=== PATIENT | male | born 1930 | race Caucasian/White ===

== ENCOUNTER 2017-10-15 18:06 | Inpatient (IN) | payer OTHER ==
[~2017-10-15] VITALS: Ht 162.5 cm; Wt 70.9 kg
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
[2017-10-16] MEDS ORDERED: HYDROXYZINE PAM50 MG PO (02:21)
[2017-10-16] MEDS ORDERED: DONEPEZIL HCL10 MG PO (02:22)
[2017-10-16] MEDS ORDERED: ALLOPURINOL100 MG PO (02:25)
[2017-10-16] MEDS ORDERED: AMLODIPINE BESYL5 MG PO (02:25)
[2017-10-16] MEDS ORDERED: DIVALPROEX SOD250 MG PO (02:29)
[2017-10-16] MEDS ORDERED: DIVALPROEX SOD125 MG PO (02:30)
[2017-10-16] MEDS ORDERED: Lac-Hydrin 12%340 GM T (02:31)
[2017-10-16] MEDS ORDERED: LISINOPRIL40 MG PO (02:32)
[2017-10-16] MEDS ORDERED: ACETAMINOPHEN325 M2 PO (02:39)
[2017-10-16] MEDS ORDERED: TYLENOL325 M3 PO (02:41)
[2017-10-16] MEDS ORDERED: DEPAKOTE500 MG PO (02:42)
[2017-10-16] MEDS ORDERED: MELATONIN5 M1 SL (02:42)
[2017-10-16] MEDS ORDERED: OMEPRAZOLE20 M2 PO (02:44)
[2017-10-16 14:03] VITALS: BP 133/84
[2017-10-16 14:54] VITALS: BP 133/84
[2017-10-17 06:23] LABS: BASO % 0.5 % (0.0-1.0); EOS # 0.2 10*3/uL (0.0-0.4); EOS % 2.4 % (1.0-4.0); HEMATOCRIT 41.9 % (42.0-52.0); HEMOGLOBIN 13.7 g/dl (14.0-18.0); LYMPH # 2.8 10*3/uL (1.3-4.4); LYMPH % 33.5 % (27.0-41.0); MEAN CELL VOLUME 93.3 fl (80.0-94.0); MEAN CORPUSCULAR HGB 30.5 pg (27.0-31.0); MEAN CORPUSCULAR HGB CONC 32.7 g/dl (33.0-37.0); MEAN PLATELET VOLUME 9.3 fl (9.6-12.3); MONO # 0.8 10*3/uL (0.1-1.0); MONO % 9.4 % (3.0-9.0); NEUT # 4.4 10*3/uL (2.3-7.9); NEUT % 53.5 % (47.0-73.0); PLATELET COUNT AUTOMATED 175 10*3/uL (130-400); RED BLOOD COUNT 4.49 10*6/uL (4.50-5.90); RED CELL DISTRI WIDTH 14.1 % (0-14.5); WHITE BLOOD COUNT 8.2 10*3/uL (4.8-10.8)
[2017-10-17 07:03] LABS: ALBUMIN 3.7 gm/dl (3.1-4.5); CREATININE 2.09 mg/dL (0.70-1.30); POTASSIUM 4.3 mmol/L (3.5-5.1); TOTAL PROTEIN 7.6 gm/dL (6.4-8.2)
[2017-10-17 07:13] LABS: THYROID STIM HORMONE (HS) 1.17 uIU/ml (0.358-4.75); VALPROIC ACID (DEPAKENE) 83.6 ug/ml (50-100)
[2017-10-17 08:09] VITALS: BP 121/67
[2017-10-17 10:22] LABS: VITAMIN D, 25-HYDROXY 45.9 ng/mL (30-100)
[2017-10-18] MEDS ORDERED: NAMENDA5 M1 PO (07:28)
[2017-10-18] MEDS ORDERED: ARICEPT5 M1 PO (07:29)
[2017-10-18] MEDS ORDERED: Depakote500 MG PO (09:35)
== END 2017-10-17 19:19 | disposition short-term general hospital (02) | DRG 57 ==
LOC: 3N 18:06
PROVIDERS: Psychiatry & Neurology Psychiatry
DX: G30.9 Alzheimer's disease, unspecified (principal); F02.81 Dementia in other diseases classified elsewhere, unspecified severity, with behavioral disturbance; F23 Brief psychotic disorder; F63.81 Intermittent explosive disorder; I25.10 Atherosclerotic heart disease of native coronary artery without angina pectoris; F32.9 Major depressive disorder, single episode, unspecified; K21.9 Gastro-esophageal reflux disease without esophagitis; E78.5 Hyperlipidemia, unspecified; F41.9 Anxiety disorder, unspecified; I10 Essential (primary) hypertension; Z79.899 Other long term (current) drug therapy; Z88.8 Allergy status to other drugs, medicaments and biological substances

== ENCOUNTER 2017-10-17 18:27 | Inpatient (IN) | payer OTHER ==
[2017-10-17] VITALS (18 sets, daily range): BP systolic 51–138; BP diastolic 31–78
[~2017-10-17] VITALS: Ht 160 cm; Wt 70.8 kg
--- NOTE | ~2017-10-17 | PR ---
[place], [place] PROGRESS NOTE NAME: MARK WINTER JR UNIT #: [id number] ROOM: [facility] DOCTOR: TRENT TIDWELL MD BIRTHDATE: [birth year] DOS: 10/20/2017 SUBJECTIVE: The patient was noted comfortable at this time, resting and appeared to be partially sedated. Not been noted in respiratory distress. Since the patient liberated from mechanical ventilation. He has not been noted any hemodynamic instability otherwise. The cultures of the endotracheal aspirate noted as normal indu. Hypertension for this patient was noted to be better and normal. OBJECTIVE: VITAL SIGNS: Normal temperature, respiratory rate 26, heart rate of 86, blood pressure 120/84. Pulse oxygen saturation on 2 L 98% saturation. HEENT: Head was atraumatic. Eyes nonicterus. NECK: Supple. CARDIOVASCULAR: S1, S2 audible. LUNGS: Noted without any wheezing or crackles. ABDOMEN: Soft, nontender. EXTREMITIES: Without any acute edema. LABORATORY DATA: The patient's chest x-ray that was done yesterday shows persistent small atelectasis left lower lobe. VQ scan was noted completely normal. The patient's CBC 10/20/2017 noted normal WBC count, hemoglobin 12.1, platelet count were normal. The endotracheal aspirate culture was normal. PT/PTT normal today. CMP: BUN 30, creatinine 1.43. IMPRESSION: 1. The patient with hypertension, most likely secondary to intravascular volume depletion, seemed to be improving. No other etiology of the current hypertension determined. 2. The patient with change in mental status also noted previously, which has been still persistent with psychiatric issues. PLAN OF MANAGEMENT: No antibiotic will be needed. Continuation of the bronchodilators, oxygen supplementation and other therapy, plan of management for the patient at this time. Oxygen supplementation, maintain pulse oxygen saturation 92% or greater. Additional treatment changes to be made for the patient based on progression of the illness. [place], [place] PROGRESS NOTE NAME: MARK WINTER JR UNIT #: [id number] ROOM: [facility] DOCTOR: TRENT TIDWELL MD BIRTHDATE: [birth year] RTENT MARES MD CM:PNTRANS 1229 1503 TRENT CASSIDY MD 10/20/17 1502 interface
--- NOTE | ~2017-10-17 | EKG ---
[place], [place] ELECTROCARDIOGRAM REPORT NAME: MARK WINTER JR UNIT #: [id number] ROOM: [facility] DOCTOR: VISHNU CASSIDY MD,TRENT BIRTHDATE: [birth year] DOS: 10/17/2017 The electrocardiogram done for this patient on 10/17/2017 at 6:42 p.m. Baseline artifact was noted because of the movement. Normal sinus rhythm were noted for the patient. TRENT MARES MD CM:EKGRPT:ELECTROCARDIOGRAM REPORT 1326 1425 TRENT CASSIDY MD
--- NOTE | ~2017-10-17 | PROC NOTE ---
[place], [place] PROCEDURE NOTE NAME: MARK WINTER JR UNIT #: [id number] ROOM: [facility] DOCTOR: LILIANA VIVEROS,VANDANA BIRTHDATE: [birth year] DOS: 10/17/2017 TIME OF PROCEDURE: 1849. I was called to the room by the Internal Medicine residents for evaluation of a patient with altered mental status and decreased oxygen saturations. The patient was undergoing bag valve mask ventilation with 100% oxygen and was somewhat hypotensive with blood pressures in the 60s. Two IVs were established by nursing and 1 mL of push dose epinephrine was given to the patient IV. Blood pressure did improve to above 90 systolic. He remained with altered mental status, requiring assistance with bag valve mask ventilation, and the patient was intubated endotracheally with rapid sequence intubation - specifically, etomidate 30 mg IV, followed by succinylcholine 100 mg IV. GlideScope was used and a 7.5 cuffed endotracheal tube was inserted to a depth of 24 cm. Placement was confirmed with bilateral breath sounds and end tidal CO2 detector with color change appropriately. The patient was then started on a propofol drip for sedation, and was also ordered morphine and Versed for sedation. Further management of the care was returned back to the primary team. VANDANA FORD MD CM:PROCNOTE:PROCEDURE NOTE [id number] VANDANA FORD MD
--- NOTE | ~2017-10-17 | EKG ---
[place], [place] ELECTROCARDIOGRAM REPORT NAME: MARK WINTER JR UNIT #: [id number] ROOM: [facility] DOCTOR: VISHNU CASSIDY MD,TRENT BIRTHDATE: [birth year] DOS: 10/17/2017 Electrocardiogram was done on 10/17/2017, at 2141 hours. It shows a normal sinus rhythm. Heart rate 83 beats per minute. Old inferior myocardial infarction would be considered. TRENT MARES MD CM:EKGRPT:ELECTROCARDIOGRAM REPORT 1327 1423 TRENT CASSIDY MD
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
--- NOTE | ~2017-10-17 | PR ---
[place], [place] PROGRESS NOTE NAME: MARK WINTER JR UNIT #: [id number] ROOM: [facility] DOCTOR: VISHNU CASSIDY MD,TRENT BIRTHDATE: [birth year] DOS: 10/19/2017 PULMONARY PROGRESS NOTE SUBJECTIVE: The patient self-extubated this morning. He has been noted to be awake and alert without any acute distress at the present time, post extubation. He has been noted with confusional status. The patient has not been noted any symptoms of any distress this morning. Speech remains garbled, unable to understand. He required 2-point restraints because of his agitation. He has not been able to give me any history by himself. OBJECTIVE: VITAL SIGNS: The patient showed a temperature noted as 99.8 degree Fahrenheit to normal temperature, respiratory rate of 26-13, heart rate of 99-107, blood pressure 115/76-131/86. Pulse oxygen saturation of the patient noted to 4 liters nasal cannula 97% saturation. The pulse ox sat 100% noted on mechanical ventilation plus oxygen. HEENT: Examination shows head was atraumatic. Eyes nonicterus. NECK: Supple. CARDIOVASCULAR: S1, S2 audible. LUNGS: The patient was noted without any wheezing or crackles at the present time. ABDOMEN: Soft, nontender. EXTREMITIES: The patient was noted without any acute edema. MUSCULOSKELETAL: Without any acute deformities. SKIN: Visible skin, no lesions or rashes. LABORATORY DATA: The CMP that was done this morning, BUN 37, creatinine 2.06, glucose 103. CO2 of 20. AST was 62. Blood culture, no bacterial growth from the 10/17/2017. Endotracheal as per the patient's cultures normal indu from yesterday with pending results. The PTT was noted greater than 250. Urine culture showed no bacterial growths. IMPRESSION: 1. The patient with hypoxia currently noted with a significant increase in PTT, which has been currently adjusted. 2. The patient with acute respiratory failure, unresponsive, status post liberation of mechanical ventilation. 3. Resolution of hypotension. 4. History of dementia and psychiatric problems. PLAN OF MANAGEMENT: No changes in the plan of management of the patient at this time as in progress just the anticoagulation based on the protocol. Supportive therapy, plan of management, other care, plan of management therapy. Usual treatment and therapies. [place], [place] PROGRESS NOTE NAME: MARK WINTER JR UNIT #: [id number] ROOM: [facility] DOCTOR: TRENT TIDWELL MD BIRTHDATE: [birth year] TRENT MARES MD CM:FLAQUITA [id number] [id number] TRENT CASSIDY MD 10/20/17 0933 interface
--- NOTE | ~2017-10-17 | PR ---
[place], [place] PROGRESS NOTE NAME: MARK WINTER JR UNIT #: [id number] ROOM: [facility] DOCTOR: VISHNU CASSIDY MD,TRENT BIRTHDATE: [birth year] DOS: 10/23/2017 PULMONARY PROGRESS NOTE SUBJECTIVE: The patient noted comfortable at this time, sitting on the chair, eating his food. He has not been noted any symptoms of agitation at this time, shortness of breath, or coughing. The patient was noted cooperative with examination. OBJECTIVE: VITAL SIGNS: For the patient which were recorded showed the temperature noted normal, respiratory rate 18, heart rate 90, blood pressure 124/80. Pulse oxygen saturation recorded on room air as 96% saturation. HEENT: Examination shows head was atraumatic. Eyes nonicterus. CARDIOVASCULAR: S1, S2 audible. LUNGS: Clear to auscultation bilaterally. ABDOMEN: Soft, nontender, mild obesity. Bowel sounds present. EXTREMITIES: Without any acute edema. IMPRESSION: Stable respiratory status. Resolution of acute hypotension as well as respiratory failure, progressive and acute psychiatric illness with agitation and confusional status noted. PLAN OF MANAGEMENT: No changes in the plan of management at this time. The patient does not require any additional intervention at this time, doing very well. His psychiatric medications have been changed. Progressively and behavior toro, the patient has been noted much better today than before. TRENT MARES MD CM:PNTRANS 1115 1328 TRENT CASSIDY MD 10/23/17 1326 interface
--- NOTE | ~2017-10-17 | CON ---
[place], [place] REPORT OF CONSULTATION NAME: MARK WINTER JR UNIT #: [id number] ROOM: [facility] DOCTOR: JOSIE GREWAL MD BIRTHDATE: [birth year] DOS: 10/18/2017 CHIEF COMPLAINT: The patient was nonverbal. HISTORY OF PRESENT ILLNESS: This is an 87-year-old white male known to me from previous admission to the [facility] as well as his stay at [facility] in [place]. The patient was admitted to the [facility] recently due to altered mental status with severe verbal and physical aggression. On the day that he was discharged from the [facility] to ICU, the patient had been refusing p.o. intake. In an attempt to get him to eat better, nursing changed his diet to pureed. He did eat a full meal and then had an episode of nausea and vomiting and subsequently a significant change in mental status. Vitals were checked and his blood pressure was found to be 67/48 with a heart rate of 80 and a temperature of 97.1, respirations of 16 and a pulse ox of 92. The patient did have a very weak pulse and his blood pressure was confirmed to be very low. At this point, he was minimally responsive and it was felt that an admission to the ICU was warranted. Since he has been in ICU, nurses report that he does seem to be fighting the respirator, but otherwise is uneventful. There is some question regarding what medicines he should be on psychiatrically. PAST MEDICAL HISTORY: Remarkable for dementia, coronary artery disease, hypertension, GERD, and hyperlipidemia. ALLERGIES: He does have an allergy to EXELON, supposedly. MENTAL STATUS: His mental status is limited due to his unresponsiveness. PLAN: I will go ahead and simplify his medication regimen. At this point, I will put on hold his Exelon, maintain his Aricept at 5 a day and Namenda at 5 mg twice a day. I will sign off the case at this point as his medical needs far outweigh his psychiatric. JOSIE GREWAL MD CM:CONSTR:REPORT OF CONSULTATION 0940 10/29/17 1423 interface
--- NOTE | ~2017-10-17 | PR ---
[place], [place] PROGRESS NOTE NAME: MARK WINTER JR UNIT #: [id number] ROOM: [facility] DOCTOR: VISHNU CASSIDY MD,TRENT BIRTHDATE: [birth year] DOS: 10/21/2017 SUBJECTIVE: The patient was noted without any acute new complaints at the present time. The patient was noted restless, with the patient agitated at time as previously with the psych issues. He had not been noted any respiratory distress. The blood pressure the patient noted well maintained without evidence of hypotension. Oxygenation was also noted better. OBJECTIVE: VITAL SIGNS: Normal temperature this morning, respiratory rate of 28 to 33. Heart rate of 98. The temperature normal. The pulse oxygen saturation of the patient recorded as 98% saturation on 2 L nasal cannula. HEENT: Examination shows head was atraumatic. Eyes nonicterus. NECK: Supple. CARDIOVASCULAR: S1, S2 audible. LUNGS: The patient was noted without any wheezing or crackles at the present time. ABDOMEN: Soft, nontender. EXTREMITIES: Without any acute edema. IMPRESSION: Persistent change in mental status, agitated behavior. The patient has psychosis. The patient noted resolution of the hypotension the acute illness patient progressively noted. PLAN OF TREATMENT: From the pulmonary standpoint, the patient could be transferred to the Behavioral Health Unit for further medical and psychiatric problem. No major change in the treatment needs to be done. Titrate oxygen supplementation to maintain pulse ox 92% or greater. TRENT MARES MD CM:PNTRANS 1039 1502 TRENT CASSIDY MD 10/21/17 1501 interface
--- NOTE | ~2017-10-17 | CON ---
[place], [place] REPORT OF CONSULTATION NAME: MARK WINTER JR UNIT #: [id number] ROOM: [facility] DOCTOR: JOSIE GREWAL MD BIRTHDATE: [birth year] DOS: 10/22/2017 CHIEF COMPLAINT: The patient spoke word salad. HISTORY OF PRESENT ILLNESS: This is an 87-year-old white male who was seen in ICU. The patient had previously been residing at [facility] in [place] and was admitted to the [facility] due to significant altered mental status. The patient had become increasingly more verbally and physically aggressive towards staff while at the long-term care facility. He subsequently was admitted to the [facility] where this behavior persisted and he continued to strike out until such time that the patient did have a significant change in mental status. He had eaten a full breakfast and then complained of nausea and started to vomit and then did seem to choke and was unresponsive. At that point in time, the Internal Medicine doctors felt that he needed to be transported to ICU where he was put on a ventilator and was minimally responsive. Since that time, the vent has been removed and he has been on IV antibiotics to treat an infection. He continues, however, to be persistently agitated and aggressive. He does strike out without provocation and will occasionally make sense and when he does speak, he is speaking in a plethora of curse words. The patient does still represent a significant risk of harm to self and others and now that he is medically stable should be re-transported back to the [facility] for further stabilization. PAST MEDICAL HISTORY: Remarkable for dementia, coronary artery disease, hypertension, GERD, hyperlipidemia, new onset atrial fibrillation and sepsis. ALLERGIES: He does list an allergy to Exelon. MENTAL STATUS: Limited. He did make eye contact when I called his name, but otherwise his responses were gibberish and nonsensical. He did not exhibit any agitation directed towards me or to the nurse that was accompanied me. DIAGNOSIS: Brief psychotic disorder. DISPOSITION: At this point, I would go ahead and readmit to the [facility] for further stabilization with the ultimate plan to return him back to [facility] in [place] when medically and psychiatrically stable. JOSIE GREWAL MD CM:CONSTR:REPORT OF CONSULTATION 1009 10/22/17 2344 interface
--- NOTE | ~2017-10-17 | EKG ---
[place], [place] ELECTROCARDIOGRAM REPORT NAME: MARK WINTER JR UNIT #: [id number] ROOM: [facility] DOCTOR: VISHNU CASSIDY MD,TRENT BIRTHDATE: [birth year] DOS: 10/18/2017 Electrocardiogram was done 10/18/2017, at 12:16 a.m. Normal sinus rhythm noted. Heart rate 95 beats per minute, old inferior myocardial infarction. Nonspecific ST-T changes were noted. TRENT MARES MD CM:EKGRPT:ELECTROCARDIOGRAM REPORT [id number] TRENT CASSIDY MD
--- NOTE | ~2017-10-17 | PR ---
[place], [place] PROGRESS NOTE NAME: MARK WINTER JR UNIT #: [id number] ROOM: [facility] DOCTOR: VISHNU CASSIDY MD,TRENT BIRTHDATE: [birth year] DOS: 10/22/2017 SUBJECTIVE: He has required 3-point restraint because of agitation, confusion persisted. The patient not noted any respiratory distress or any hemodynamic instability. OBJECTIVE: VITAL SIGNS: Normal temperature, respiratory rate 20, heart rate 96, blood pressure 146/85 this morning recorded. Pulse ox saturation on room air 95% saturation noted. HEENT: Head was atraumatic. Eyes nonicterus. NECK: Supple. CARDIOVASCULAR: S1, S2 audible. LUNGS: Noted without any wheezing or crackles at the present time. ABDOMEN: Soft, nontender. Bowel sounds present. IMPRESSION: The patient with confusional status resolution of acute hypoxic respiratory failure and hypotension. PLAN OF MANAGEMENT: No changes in plan of care at this time. Continue the patient's current therapy, plan of care as previously. Usual care, other supportive plan of management and treatment. TRENT MARES MD CM:PNTRANS [id number] TRENT CASSIDY MD 10/22/17 1216 interface
[~2017-10-17 18:27] MED LIST: ACETAMINOPHEN325 M2 PO; ALLOPURINOL100 MG PO; AMLODIPINE BESYL5 MG PO; DEPAKOTE500 MG PO; DIVALPROEX SOD125 MG PO; DIVALPROEX SOD250 MG PO; DONEPEZIL HCL10 MG PO; HYDROXYZINE PAM50 MG PO; LISINOPRIL40 MG PO; Lac-Hydrin 12%340 GM T; MELATONIN5 M1 SL; OMEPRAZOLE20 M2 PO; TYLENOL325 M3 PO
[2017-10-17 19:14] LABS: BASO % 0.3 % (0.0-1.0); EOS % 0.1 % (1.0-4.0); LYMPH # 1.3 10*3/uL (1.3-4.4); LYMPH % 11.7 % (27.0-41.0); MEAN CELL VOLUME 93.3 fl (80.0-94.0); MEAN CORPUSCULAR HGB 30.4 pg (27.0-31.0); MEAN CORPUSCULAR HGB CONC 32.6 g/dl (33.0-37.0); MEAN PLATELET VOLUME 9.4 fl (9.6-12.3); MONO # 0.6 10*3/uL (0.1-1.0); MONO % 5.6 % (3.0-9.0); NEUT % 81.4 % (47.0-73.0); PLATELET COUNT AUTOMATED 196 10*3/uL (130-400); RED BLOOD COUNT 4.61 10*6/uL (4.50-5.90); RED CELL DISTRI WIDTH 14.1 % (0-14.5); WHITE BLOOD COUNT 11.1 10*3/uL (4.8-10.8)
[2017-10-17 19:32] LABS: ALBUMIN 3.7 gm/dl (3.1-4.5); CREATININE 3.86 mg/dL (0.70-1.30); TOTAL PROTEIN 7.7 gm/dL (6.4-8.2)
[2017-10-17 19:33] LABS: BILIRUBIN 1+ (NEGATIVE); BLOOD 1+ (NEGATIVE); CLARITY SL CLOUDY (CLEAR); COLOR YELLOW (YELLOW); GLUCOSE NEGATIVE (NEGATIVE); KETONE TRACE (NEGATIVE); LEUKO ESTERASE 1+ (NEGATIVE); NITRITE NEGATIVE (NEGATIVE); SPECIFIC GRAVITY 1.025 (1.005-1.030); UROBILINOGEN 0.2 E.U./dl (0.2-1.0)
[2017-10-17 19:36] LABS: POTASSIUM 5.2 mmol/L (3.5-5.1)
[2017-10-17 19:37] LABS: TROPONIN I 0.224 ng/ml (<0.045)
[2017-10-17 19:46] LABS: WBC 21-30 wbc/hpf (0-5)
[2017-10-17 19:47] LABS: BACTERIA 1+; COARSE GRANULAR CAST 0-3
[2017-10-17 20:41] LABS: ABG BASE EXCESS -8.4 mmol/L (-2.0-2.0); ABG HCO3 16.6 mmol/l (22-26); ABG O2 SATURATION 96.3 % (95-97); ARTERIAL BLOOD GAS PCO2 33.3 mmHg (35-45); ARTERIAL BLOOD GAS PH 7.315 (7.35-7.45); ARTERIAL BLOOD GAS PO2 93.8 mmHg (80-90)
[2017-10-17 22:20] LABS: ACT PARTIAL THROMBO TIME 24.4 SECONDS (20.8-31.5); INTERNATIONAL NORM RATIO 1.1 (2.0-3.5)
[2017-10-18] VITALS (24 sets, daily range): BP systolic 67–136; BP diastolic 31–98
[2017-10-18 00:52] LABS: ALBUMIN 2.9 gm/dl (3.1-4.5); CREATININE 3.22 mg/dL (0.70-1.30); POTASSIUM 4.5 mmol/L (3.5-5.1)
[2017-10-18 06:14] LABS: BASO % 0.3 % (0.0-1.0); EOS % 0.1 % (1.0-4.0); HEMATOCRIT 38.8 % (42.0-52.0); HEMOGLOBIN 12.4 g/dl (14.0-18.0); LYMPH # 0.5 10*3/uL (1.3-4.4); LYMPH % 4.7 % (27.0-41.0); MEAN CELL VOLUME 94.9 fl (80.0-94.0); MEAN CORPUSCULAR HGB 30.3 pg (27.0-31.0); MEAN PLATELET VOLUME 9.9 fl (9.6-12.3); MONO # 1.1 10*3/uL (0.1-1.0); MONO % 9.9 % (3.0-9.0); NEUT % 84.1 % (47.0-73.0); PLATELET COUNT AUTOMATED 159 10*3/uL (130-400); RED BLOOD COUNT 4.09 10*6/uL (4.50-5.90); RED CELL DISTRI WIDTH 14.4 % (0-14.5); WHITE BLOOD COUNT 10.7 10*3/uL (4.8-10.8)
[2017-10-18 06:25] LABS: POTASSIUM 4.4 mmol/L (3.5-5.1)
[2017-10-18 06:30] LABS: CREATININE 2.96 mg/dL (0.70-1.30); PHOSPHOROUS 2.9 mg/dL (2.5-4.9)
[2017-10-18 07:02] LABS: ABG HCO3 15.2 mmol/l (22-26); ABG O2 SATURATION 97.5 % (95-97); ARTERIAL BLOOD GAS PCO2 26.5 mmHg (35-45); ARTERIAL BLOOD GAS PH 7.377 (7.35-7.45); ARTERIAL BLOOD GAS PO2 98.2 mmHg (80-90)
[2017-10-18 07:04] LABS: ABG BASE EXCESS -8.2 mmol/L (-2.0-2.0)
[2017-10-18] MEDS ORDERED: NAMENDA5 M1 PO (07:28)
[2017-10-18] MEDS ORDERED: ARICEPT10 M1 PO (07:29)
[2017-10-18] MEDS ORDERED: Depakote500 MG PO (09:35)
[2017-10-19] VITALS (8 sets, daily range): BP systolic 100–148; BP diastolic 50–95
[2017-10-19 06:04] LABS: BASO % 0.2 % (0.0-1.0); EOS % 0.3 % (1.0-4.0); HEMATOCRIT 36.2 % (42.0-52.0); HEMOGLOBIN 11.8 g/dl (14.0-18.0); LYMPH # 1.9 10*3/uL (1.3-4.4); LYMPH % 19.2 % (27.0-41.0); MEAN CELL VOLUME 92.8 fl (80.0-94.0); MEAN CORPUSCULAR HGB 30.3 pg (27.0-31.0); MEAN CORPUSCULAR HGB CONC 32.6 g/dl (33.0-37.0); MEAN PLATELET VOLUME 9.4 fl (9.6-12.3); MONO # 1.2 10*3/uL (0.1-1.0); MONO % 12.9 % (3.0-9.0); NEUT # 6.4 10*3/uL (2.3-7.9); NEUT % 66.9 % (47.0-73.0); PLATELET COUNT AUTOMATED 151 10*3/uL (130-400); RED CELL DISTRI WIDTH 14.6 % (0-14.5); WHITE BLOOD COUNT 9.6 10*3/uL (4.8-10.8)
[2017-10-19 06:30] LABS: ALBUMIN 2.9 gm/dl (3.1-4.5); CREATININE 2.06 mg/dL (0.70-1.30); PHOSPHOROUS 2.3 mg/dL (2.5-4.9); POTASSIUM 4.1 mmol/L (3.5-5.1); TOTAL PROTEIN 6.5 gm/dL (6.4-8.2)
[2017-10-19 10:51] LABS: ABG BASE EXCESS -4.6 mmol/L (-2.0-2.0); ABG HCO3 18.5 mmol/l (22-26); ABG O2 SATURATION 97.4 % (95-97); ARTERIAL BLOOD GAS PCO2 29.3 mmHg (35-45); ARTERIAL BLOOD GAS PH 7.415 (7.35-7.45); ARTERIAL BLOOD GAS PO2 89.3 mmHg (80-90)
[2017-10-20] VITALS (7 sets, daily range): BP systolic 87–144; BP diastolic 47–84
[2017-10-20 05:48] LABS: BASO % 0.2 % (0.0-1.0); EOS % 0.3 % (1.0-4.0); HEMATOCRIT 36.9 % (42.0-52.0); HEMOGLOBIN 12.1 g/dl (14.0-18.0); LYMPH # 1.8 10*3/uL (1.3-4.4); LYMPH % 19.3 % (27.0-41.0); MEAN CELL VOLUME 92.5 fl (80.0-94.0); MEAN CORPUSCULAR HGB 30.3 pg (27.0-31.0); MEAN CORPUSCULAR HGB CONC 32.8 g/dl (33.0-37.0); MEAN PLATELET VOLUME 9.2 fl (9.6-12.3); MONO # 1.3 10*3/uL (0.1-1.0); MONO % 13.3 % (3.0-9.0); NEUT # 6.3 10*3/uL (2.3-7.9); NEUT % 66.4 % (47.0-73.0); PLATELET COUNT AUTOMATED 160 10*3/uL (130-400); RED BLOOD COUNT 3.99 10*6/uL (4.50-5.90); RED CELL DISTRI WIDTH 14.2 % (0-14.5); WHITE BLOOD COUNT 9.5 10*3/uL (4.8-10.8)
[2017-10-20 05:57] LABS: ACT PARTIAL THROMBO TIME 27.4 SECONDS (20.8-31.5); INTERNATIONAL NORM RATIO 1.1 (2.0-3.5)
[2017-10-20 06:04] LABS: ALBUMIN 2.9 gm/dl (3.1-4.5); CREATININE 1.43 mg/dL (0.70-1.30); TOTAL PROTEIN 6.5 gm/dL (6.4-8.2)
[2017-10-20 06:34] LABS: TROPONIN I 0.069 ng/ml (<0.045)
[2017-10-21] VITALS: BP 127/70
[2017-10-21 04:00] VITALS: BP 136/77
[2017-10-21 05:17] LABS: CREATININE 1.48 mg/dL (0.70-1.30)
[2017-10-21 07:54] VITALS: BP 143/87
[2017-10-21 12:00] VITALS: BP 116/79
[2017-10-21 16:00] VITALS: BP 128/83
[2017-10-21 20:00] VITALS: BP 101/51
[2017-10-22 00:01] VITALS: BP 156/89
[2017-10-22 03:55] VITALS: BP 153/95
[2017-10-22 05:19] LABS: BUN 26 mg/dl (7-24); CHLORIDE 107 mmol/L (98-107); CREATININE 1.32 mg/dL (0.70-1.30); POTASSIUM 3.9 mmol/L (3.5-5.1); SODIUM 142 mmol/L (136-145)
[2017-10-22 08:00] VITALS: BP 146/85
[2017-10-22 12:00] VITALS: BP 132/84
[2017-10-22 16:00] VITALS: BP 133/84
[2017-10-22 20:00] VITALS: BP 135/81
[2017-10-23] VITALS: BP 115/81
[2017-10-23 04:00] VITALS: BP 121/76
[2017-10-23 08:00] VITALS: BP 124/80
[2017-10-23 12:00] VITALS: BP 124/85
[2017-10-23] MEDS ORDERED: DEPAKOTE ER500 MG PO (13:27)
[2017-10-23] MEDS ORDERED: ELIQUIS5 M1 PO (13:37)
[2017-10-23] MEDS ORDERED: LOPRESSOR25 MG PO (13:37)
[2017-10-23 16:00] VITALS: BP 106/69
== END 2017-10-23 16:28 | DRG 208 ==
LOC: ICCU 18:27
PROVIDERS: Internal Medicine; Internal Medicine Critical Care Medicine; Internal Medicine Hospice and Palliative Medicine; Student in an Organized Health Care Education/Training Program
PROC: 0BH17EZ Insertion of Endotracheal Airway into Trachea, Via Natural or Artificial Opening (ICD-10-PCS; principal; 2017-10-17)
PROC: 5A1945Z Respiratory Ventilation, 24-96 Consecutive Hours (ICD-10-PCS; 2017-10-18)
DX: J96.01 Acute respiratory failure with hypoxia (principal); N17.0 Acute kidney failure with tubular necrosis; I95.9 Hypotension, unspecified; E87.2 Acidosis; E44.0 Moderate protein-calorie malnutrition; E87.5 Hyperkalemia; I48.91 Unspecified atrial fibrillation; E87.8 Other disorders of electrolyte and fluid balance, not elsewhere classified; N39.0 Urinary tract infection, site not specified; F23 Brief psychotic disorder; F33.9 Major depressive disorder, recurrent, unspecified; D64.9 Anemia, unspecified; R73.9 Hyperglycemia, unspecified; E66.3 Overweight; F41.1 Generalized anxiety disorder; I10 Essential (primary) hypertension; K21.9 Gastro-esophageal reflux disease without esophagitis; I25.10 Atherosclerotic heart disease of native coronary artery without angina pectoris; E78.5 Hyperlipidemia, unspecified; Z88.8 Allergy status to other drugs, medicaments and biological substances; Z79.899 Other long term (current) drug therapy; Z68.27 Body mass index [BMI] 27.0-27.9, adult